=== PATIENT | male | born 1960 | race Asian ===

== ENCOUNTER 2021-03-09 15:17 | Outpatient (CLI) | payer BC, OTHER | END 2021-03-09 20:55 | disposition home or self-care (01) | LOC: RESP 15:17 | PROVIDERS: ATTEND Specialist | DX: I10 Essential (primary) hypertension (principal); R94.31 Abnormal electrocardiogram [ECG] [EKG]; E11.9 Type 2 diabetes mellitus without complications ==

== ENCOUNTER 2021-03-18 07:54 | Outpatient (CLI) | payer BC, OTHER ==
[~2021-03-18] VITALS: Ht 177.8 cm; Wt 115.2 kg
== END 2021-03-18 19:07 | disposition home or self-care (01) ==
LOC: NM 07:54
PROVIDERS: ATTEND Specialist
DX: E11.9 Type 2 diabetes mellitus without complications (principal); I10 Essential (primary) hypertension; R94.31 Abnormal electrocardiogram [ECG] [EKG]; E78.2 Mixed hyperlipidemia
CPT/HCPCS: A9500; J2785